=== PATIENT | female | born 1970 | race Caucasian/White ===

== ENCOUNTER 2016-12-23 08:55 | Day surgery (SDC) | payer OTHER ==
[~2016-12-23] VITALS: Ht 165.1 cm; Wt 74.8 kg
[~2016-12-23 08:55] MED LIST: ADVIL200 M1 PO; ALAVERT D-12 A1 EACH PO; ASPIRIN325 MG PO; ATIVAN1 MG PO; CITALOPRAM HBR20 MG PO; TECFIDERA240 MG PO; YAZ 28 TABLET1 EACH PO
--- NOTE | 2016-12-23 10:34 | NUR ---
12/23/16 1034 Maulik Jessica PT SLEEPING AND IS PASSING AIR FROM HER COLON.
== END 2016-12-23 10:55 | disposition home or self-care (01) ==
LOC: DS 08:55 → OPS 08:55 → DS 09:00 → OPS 09:00
PROVIDERS: Colon & Rectal Surgery
PROC: 0DJD8ZZ Inspection of Lower Intestinal Tract, Via Natural or Artificial Opening Endoscopic (ICD-10-PCS; principal; 2016-12-23 10:00)
DX: K64.4 Residual hemorrhoidal skin tags (principal); Z83.71 Family history of colonic polyps; E78.5 Hyperlipidemia, unspecified; F32.9 Major depressive disorder, single episode, unspecified; Z98.890 Other specified postprocedural states; J30.2 Other seasonal allergic rhinitis
CPT/HCPCS: 00810; J2250; J2704; J3010; J7120

== ENCOUNTER 2018-10-18 08:55 | Day surgery (SDC) | payer OTHER ==
[~2018-10-18] VITALS: Ht 165.1 cm; Wt 72.6 kg
[~2018-10-18 08:55] MED LIST changes: +GABAPENTIN300 MG PO; +VITAMIN D31000 UNI1 PO; +ZYRTEC10 MG PO
--- NOTE | 2018-10-18 14:49 | NUR ---
10/18/18 1449 Vania Devries 1445 PATIENT ARRIVES TO PACU AWAKE OFF/ON, DENIES PAIN. RESP EVEN AND UNLABORED, NC AT 2 LITERS.
[2018-10-18] MEDS ORDERED: IBUPROFEN600 MG PO (15:03)
[2018-10-18] MEDS ORDERED: TYLENOL325 MG PO (15:04)
[2018-10-18] MEDS ORDERED: OXYCODON-ACETA1 EAC2 PO (15:04)
--- NOTE | 2018-10-18 15:57 | NUR ---
PT IS BACK TO DS FROM PACU. HER IS AT THE BEDSIDE. PT IS PAINFUL AND REPORTS MUCH. SHE IS TOLERATING SIPS OF WATER AND SOME CRACKERS, REQUESTING JELLO. 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 CALL LIGHT WITHIN REACH. NO ADDITIONAL NEEDS AT THIS TIME. WILL CONTINUE TO MONITOR.
--- NOTE | 2018-10-18 17:07 | NUR ---
PT IS HELPED UP OOB WITH STANDBY ASSIST. SHE REPORTS FEELING SLIGHTLY DIZZY, BUT IS ABLE TO KEEP HER BALANCE AND IS NOT WOBBLING. SHE AMBULATES HERSELF WITH ASSISTANCE TO THE BATHROOM. SHE IS ABLE TO VOID 200ML'S OF URINE. SHE IS HELPED BACK TO HER ROOM. SHE IS EDUCATED THAT SHE HAS MET DC CRITERIA AT THIS TIME AND IF SHE WOULD LIKE TO GET DRESSED SHE COULD, SHE OPTED TO WAIT FOR HER TO GET BACK. PT IS INSTRUCTED TO HIT HER CALL LIGHT WHEN HER RETURNS.
--- NOTE | 2018-10-18 17:41 | NUR ---
VERBAL DC INSTRUCTIONS ARE GIVEN TO THE PATIENT AND HER . THEY BOTH VERBALIZE UNDERSTANDING. QUESTIONS ARE ASKED AND ANSWERED. PT IS TAKEN TO VEHICLE VIA WC.
--- NOTE | 2018-10-19 10:55 | OR ---
[facility] [address], [place] [address] Signed DATE OF OPERATION: 10/18/2018 SURGEON: Twila Pierre MD PREOPERATIVE DIAGNOSIS: Left upper outer quadrant infiltrating ductal breast carcinoma. POSTOPERATIVE DIAGNOSES: 1. Left upper outer quadrant infiltrating ductal breast carcinoma. 2. [place] lymph nodes x2, benign on frozen pathology. PROCEDURE: 1. Injection of methylene blue dye for sentinel lymph node biopsy. 2. Excision of deep left axillary sentinel lymph nodes x2. 3. Left partial mastectomy. 4. Oncoplastic closure of breast defect. ANESTHESIA: General endotracheal, Sonali Magaña CRNA. INDICATION: This 47-year-old white woman is a patient of Dr. Candida Rice, recently diagnosed on abnormal mammographies with image guided biopsy by Dr. Harshad Padgett to have infiltrating ductal breast carcinoma in the upper outer aspect of the left side. The patient has maintained a high level of breast cancer surveillance given a family history of her mother with breast cancer. Her biopsy was performed by Dr. Padgett by image guidance on October 06, 2018. Specific details include a low mitotic grade and low Ki-67 percentage and ER/NM receptors positive. HER-2/miah receptors are pending. The patient has rather large breasts. She is a candidate for breast conservation therapy, which she prefers. She understands the risks of bleeding, infection, cosmetic deformity, despite efforts to avoid it, need for radiation therapy and need for other indicated procedures including possible left axillary dissection if sentinel lymph node proved to be positive on frozen pathology. Understanding all of this, she wished to proceed with sentinel lymph node biopsy on the left and left partial mastectomy at site of breast cancer. Of note, image guidance to identify the breast tumor are unnecessary as the lesion is easily clinically palpable. FINDINGS: Good uptake to left medial upper axillary lymph nodes with radionuclide was noted. Electronically Signed By: TWILA PIERRE MD 10/19/18 1055 PATIENT NAME: ZOLTAN DUNBAR OPERATIVE REPORT DATE OF : 68 REPORT #: [id number] PHYSICIAN: TWILA PIERRE MD PCP: CANDIDA RICE MD REPORT IS CONFIDENTIAL AND NOT TO BE RELEASED WITHOUT AUTHORIZATION [facility] [address], [place] [address] Signed There was less uptake of the blue dye. However, there was some particular on the larger of the two lymph nodes. There were no remaining sentinel lymph nodes. Of note, based on radionuclide interrogation of the axilla. Two small normal lymph nodes coincidentally excised were sent for permanent pathology. As regards to the primary lesion itself, it was in the upper outer aspect of the left breast, it was easily identified and widely resected. The defect was rather significant. The excised specimen was at least the size of a softball somewhat elongated, but given her redundancy of breast parenchyma oncoplastic closure was able to be accomplished with mobilization of the breast pedicles and careful closure technique. Of note, both sentinel lymph nodes were negative for metastatic disease and completion of axillary dissection was not required. DESCRIPTION OF PROCEDURE: The patient was received from radiology suite having undergone sentinel lymph node identification with radionuclide technique. She was given a general endotracheal anesthetic and placed in a supine position with the left arm out. Review of her sentinel node imaging studies was undertaken and application of the C-Trak gamma probe to the axilla was undertaken showing good strong signal in the left medial upper axilla. The lesion itself was palpable in the upper outer aspect of the left breast. The breast was prepared with a spray Betadine solution and draped sterilely. Not mentioned previously there was injection of 1 mL of methylene blue dye with subepidermal space in the areolar margin on the left. Using the gamma probe as a guide, a transverse incision was made in the medial upper left axilla. Dissection was carried through the subcutaneous tissue with electrocautery. Blunt dissection was undertaken with use of Army-Carman retractors. A tonsil clamp and so forth using the probe as a guide. On characteristically, I did not see blue lymphatics, but the location of sentinel lymph nodes was far more medial than usual essentially subpectoral in the upper axilla. With meticulous care and fair amount of effort, a 1.5 cm sentinel lymph node was identified with a small amount of dye, but avid amount of uptake. This was excised. Clips were used to secure the lymphatic passages as well as blood vessels. This was sent as lymph node #1. With the additional dissection more medially, a very small node was identified, it too was marked and identified a sentinel lymph node #2. Both lymph nodes were later identified as negative for metastatic disease. Irrigation was undertaken into the axilla, showing no sign of ongoing bleeding. The wound was packed with gauze. While waiting for the frozen pathology regarding the lymph nodes, attention was turned towards the primary tumor. A curvilinear incision was made over the palpable lesion in the upper outer aspect of the left breast. Dissection was carried through the dermis using electrocautery. Flaps were elevated medially and laterally and wide resection of the palpable lesion was undertaken. It was somewhat amorphous and relatively large. I suspect greater than 2 cm and possibly three. Never the less maintenance of clinically Electronically Signed By: TWILA PIERRE MD 10/19/18 1055 PATIENT NAME: ZOLTAN DUNBAR BENJAMIN OPERATIVE REPORT DATE OF : 68 REPORT #: [id number] PHYSICIAN: TWILA PIERRE MD PCP: CANDIDA RICE MD REPORT IS CONFIDENTIAL AND NOT TO BE RELEASED WITHOUT AUTHORIZATION [facility] [address], [place] [address] Signed negative margins was undertaken with electrocautery. Wide and deep resection were undertaken. Due to the generous amount of breast present and liberal excision could be undertaken so as to provide a pathologically negative margin. Dissection was carried down to the pectoralis as it turns out. Prior to explantation of the specimen, the lesion was marked with a short stitch superior, long stitch lateral and a double stitch deep for margins. There appeared to be clinically negative margins. The specimen was passed for radiograph to affirm the lesion in question was excised and subsequently was affirmed to be completely excised and with what appeared to be a grossly negative margin radiographically. Irrigation of the large defect of the upper outer aspect of the breast was undertaken with sterile water. Small areas of bleeding were secured with electrocautery. The wound was then packed further. Attention was then turned towards the left axilla. By this point, frozen pathology confirmed no sign of metastatic disease of the axillary lymph nodes. The wound was closed in layers of interrupted 2-0 Vicryl in a running subcuticular 3-0 Vicryl for the skin. Reinspection of the defect in the upper outer aspect of the left breast was undertaken and it was clear that oncoplastic closure techniques would be beneficial for cosmetic benefit. On that basis, the medial breast pedicle was mobilized somewhat laterally and the lateral redundant tissue mobilized medially allowing for layered closure with interrupted 2-0 Vicryl covering the defect quite impressively. Deep dermal sutures were maintained in a small freeing of overlying skin that had a puckered effect, it was undertaken with electrocautery. Ultimately, the skin was closed with a running subcuticular 3-0 Vicryl, Steri-Strips were applied to both wounds as was a Mepilex silver sponge dressing and an OpSite. Blood loss was estimated about 25 mL in total. She was extubated without problem, and taken recovery room in good condition. MD SYLVIA Owens/NASRA /[id number] cc: MD Candida Barrera MD Copies: HARSHAD PADGETT MD Electronically Signed By: TWILA PIERRE MD 10/19/18 1055 PATIENT NAME: ZOLTAN DUNBAR OPERATIVE REPORT DATE OF : 68 REPORT #: [id number] PHYSICIAN: TWILA PIERRE MD PCP: CANDIDA RICE MD REPORT IS CONFIDENTIAL AND NOT TO BE RELEASED WITHOUT AUTHORIZATION [facility] [address] [place] [address] Signed CANDIDA RICE MD ~ Electronically Signed By: TWILA PIERRE MD 10/19/18 1055 PATIENT NAME: ZOLTAN DUNBAR BENJAMIN OPERATIVE REPORT DATE OF : 68 REPORT #: [id number] PHYSICIAN: TWILA PIERRE MD PCP: CANDIDA RICE MD REPORT IS CONFIDENTIAL AND NOT TO BE RELEASED WITHOUT AUTHORIZATION
== END 2018-10-18 17:35 | disposition home or self-care (01) ==
LOC: OPS 08:55 → DS 08:55 → US 09:00 → EDSTATUS 10:00 → OPS 10:00
PROVIDERS: Surgery
PROC: 0HBU0ZZ Excision of Left Breast, Open Approach (ICD-10-PCS; principal; 2018-10-18 11:30)
PROC: 07B60ZX Excision of Left Axillary Lymphatic, Open Approach, Diagnostic (ICD-10-PCS; 2018-10-18 11:30)
DX: C50.412 Malignant neoplasm of upper-outer quadrant of left female breast (principal); F32.9 Major depressive disorder, single episode, unspecified; G35 Multiple sclerosis; Z79.82 Long term (current) use of aspirin; Z79.899 Other long term (current) drug therapy
CPT/HCPCS: 00404; 76098; 76970; 78195; A9541; J0131; J0690; J1100; J1644; J1885; J2250; J2300; J2405; J2704; J3010; J3475; J7120; Q9968

== ENCOUNTER 2023-11-04 10:36 | Day surgery (SDC) | payer OTHER ==
[~2023-11-04 10:36] MED LIST changes: +AMITRIPTYLINE H10 MG PO; +ANASTROZOLE1 MG PO; +CALCIUM500 MG PO; +CEFAZOLIN SODIUM 2 GM/20 ML SYR IV SCH; +HYDROXYZINE HCL25 MG PO; +IBLOOD GLUCOSE TEST STRIP 1 EA TEST VI PRN; +IBUPROFEN600 MG PO; +LACTATED RINGER'S 1,000 ML IV SCH; +LIDOCAINE HCL 1% 5 ML SDV INJ ONE; +MELOXICAM15 MG PO; +MIDAZOLAM HCL 5 MG/5 ML VIAL IV PRN; +MONTELUKAST SOD10 MG PO; +OXYCODON-ACETA1 EAC2 PO; +PERCOCET 5-3251 EACH PO; +TYLENOL325 MG PO; +ZOFRAN8 MG PO; +fentaNYL citrate 100 MCG/2 ML VIAL IV PRN
[2023-11-04 10:51] VITALS: BP 152/94
--- NOTE | 2023-11-04 12:28 | NUR ---
PT AND ARE GIVEN AN UPDATE, LETTING THEM KNOW THAT IT WILL BE AT LEAST ANOTHER HOUR AND HALF BEFORE SHE GOES BACK FOR HER SCOPE. SHE IS GIVEN WARM BLANKETS AND ENCOURAGED TO USE HER CALL LIGHT SHOULD SHE NEED ANYTHING. IS ASKED IF HE WOULD LIKE OR NEED ANYTHING, HE DECLINES AT THIS TIME AND ENCOURAGED TO LET THIS RN KNOW IF THAT CHANGES.
[2023-11-04] MEDS ORDERED: MIDAZOLAM HCL 5 MG/5 ML VIAL ONE (14:07)
[2023-11-04] MEDS ORDERED: fentaNYL citrate 100 MCG/2 ML VIAL ONE (14:07)
--- NOTE | 2023-11-04 15:01 | NUR ---
11/04/23 1501 Adrien Muniz 1455: PT ARRIVED TO PACU VIA STRETCHER. PT ARRIVED ON RA. PT AROUSABLE TO TOUCH AND VOICE. PTS ABDOMEN SOFT AND NON DISTENED AT THIS TIME. 1500: PT REMAINS ON RA WITH SAT 91% AT THIS TIME. PT AWAKE ON AND OFF.
[2023-11-04 15:28] VITALS: BP 115/81
--- NOTE | 2023-11-06 10:52 | OR ---
[facility] [address] [place], [place] [address] Signed DATE OF OPERATION: 11/04/2023 SURGEON: Twila Pierre MD PREOPERATIVE DIAGNOSES: 1. Family history of colon cancer (father). 2. Uncertain history regarding prior polyps. POSTOPERATIVE DIAGNOSES: 1. Sigmoid and right-sided diverticulosis. 2. Small polyps x3. PROCEDURE: Total colonoscopy to cecum with cold morcellation polypectomy x3. ANESTHESIA: Intravenous sedation fentanyl 150 mcg, Versed 9 mg. INDICATION: This 53-year-old white woman is a patient of Dr. Candida Rice. She is well known to me from the past have undergone breast cancer treatment in 2019. She underwent screening colonoscopy 5-10 years ago she thinks by Dr. Christiano Lyn. She is uncertain, but believes she may have had at least one polyp. She has no current symptoms of bleeding, diarrhea or constipation. She does have family history of colon cancer in her father. She understands the risk of colonoscopy including but not limited to bleeding, infection, and perforation and wished to proceed. FINDINGS: The prep was good. Complete colonoscopy was undertaken of the cecum. She had numerous diverticula of the sigmoid and right colon. There were three very small polyps which were excised with cold morcellation technique. She had no other findings of concern. PROCEDURE IN DETAIL: The patient was brought to the endoscopy suite, placed in lateral decubitus position, given intravenous sedation to the point of slurred speech and nystagmus. Digital rectal examination was normal. An Olympus video colonoscope was passed in the rectum and manipulated throughout the colon noting diverticula of the sigmoid. In the left colon was a small polyp, was excised with cold morcellation technique. The scope was advanced further and ultimately Electronically Signed By: TWILA PIERRE MD 11/06/23 1052 PATIENT NAME: ZOLTAN DUNBAR OPERATIVE REPORT DATE OF : 68 REPORT #: [id number] PHYSICIAN: TWILA PIERRE MD PCP: CANDIDA RICE MD REPORT IS CONFIDENTIAL AND NOT TO BE RELEASED WITHOUT AUTHORIZATION [facility] [address] [place], [place] [address] Signed to the cecum. The ileocecal valve and appendiceal orifice appeared normal. Irrigation was undertaken. The scope was then carefully withdrawn. Examination showed diverticular changes of the transverse colon to a degree but not in the splenic flexure area. The scope was withdrawn. A small polyp was noted in the proximal descending colon and the previous biopsy site also noted. Further withdrawal showed a small polyp of the rectosigmoid which was excised with cold morcellation technique. Retroflexed view was normal. Scope was removed. The patient was taken to the recovery room in good condition. CONCLUSION DIAGNOSIS: Small polyps x3 and diverticulosis. PLAN: Recommend repeat colonoscopy in 5 years, sooner if symptoms should develop. Recommend also high-fiber diet. She will return to the ongoing care of Dr. Rice. MD SYLVIA Owens/NASRA /[id number] cc: Candida Rice MD Copies: CANDIDA RICE MD ~ Electronically Signed By: TWILA PIERRE MD 11/06/23 1052 PATIENT NAME: ZOLTAN DUNBAR BENJAMIN OPERATIVE REPORT DATE OF : 68 REPORT #: [id number] PHYSICIAN: TWILA PIERRE MD PCP: CANDIDA RICE MD REPORT IS CONFIDENTIAL AND NOT TO BE RELEASED WITHOUT AUTHORIZATION
--- NOTE | 2023-11-09 17:08 | PATH ---
[facility] [address] [place] [facility] [place] [address] Signed SPECIMEN(S): A DESCENDING COLON POLYP SPECIMEN(S): B DESCENDING COLON POLYP #2 SPECIMEN(S): C SIGMOID/RECTUM POLYP SPECIMEN SOURCE: A. DESCENDING COLON POLYP B. DESCENDING COLON POLYP #2 C. SIGMOID/RECTUM POLYP CLINICAL HISTORY: Family history of colon cancer, diverticulosis FINAL PATHOLOGIC DIAGNOSIS: A. Descending colon polyp: - Hyperplastic polyp. B. Descending colon polyp #2: - Tubular adenoma. - Negative for high-grade dysplasia or malignancy. C. Sigmoid/rectum polyp: - Polypoid fragment of benign colonic mucosa. - No colitis or neoplasm identified. [facility] MICROSCOPIC EXAMINATION: Histologic sections of all submitted blocks are examined by light microscopy. These findings, together with the gross examination, support the pathologic diagnosis. GROSS DESCRIPTION: A. The specimen, labeled and designated "Rubens, descending/left colon polyp," is received in formalin and consists of one cuevas soft tissue fragment, 0.3 cm. Entirely submitted in (A1). B. The specimen, labeled and designated "Rubens, descending/left colon polyp #2," is received in formalin and consists of two cuevas soft tissue fragments, ranging from 0.2-0.3 cm. Entirely submitted in (B1). C. The specimen, labeled and designated "Rubens, sigmoid/rectum polyp," is received in formalin and consists of one cuevas soft tissue fragment, 0.4 cm. Entirely submitted in (C1). VB (under the direct supervision of a pathologist) The Gross Description was prepared using a voice recognition system. The report PATIENT NAME: ZOLTAN DUNBAR PATHOLOGY DATE OF : 68 REPORT #: [id number] PHYSICIAN: ILSA CRAWFORD PCP: CANDIDA BAKER MD REPORT IS CONFIDENTIAL AND NOT TO BE RELEASED WITHOUT AUTHORIZATION [facility] [address] [place], [place] [address] Signed was reviewed for accuracy; however, sound-alike word errors, addition and/or deletions may occur. If there is any question about this report, please contact Client Services. ADDITIONAL NOTES: Immunohistochemical and/or in situ hybridization studies if performed in this case included appropriate positive controls that reacted as expected. This test was developed and its performance characteristics determined by [facility]. It has not been cleared or approved by the U.S. Food and Drug Administration. The FDA has determined that such clearance or approval is not necessary. This test is used for clinical purposes. It should not be regarded as investigational or for research. [facility] is certified under the Clinical Laboratory Improvement Amendments of 1988 (CLIA) as qualified to perform high complexity clinical laboratory testing. PERFORMING LABORATORY: Technical component was performed by [facility], [address] [place] [id number] (CLIA# [id number]). Professional interpretation was performed by [facility], [address] [place] [id number] (CLIA#: [id number]). Diagnostician: Parker Palacio MD Pathologist Electronically Signed 11/09/2023 Copies: ~ PATIENT NAME: ZOLTAN DUNBAR PATHOLOGY DATE OF : 68 REPORT #: [id number] PHYSICIAN: IL[facility] PATHOLOGY PCP: CANDIDA BAKER MD REPORT IS CONFIDENTIAL AND NOT TO BE RELEASED WITHOUT AUTHORIZATION
== END 2023-11-04 16:20 | disposition home or self-care (01) ==
LOC: OPS 10:36
PROVIDERS: ATTEND Surgery
PROC: 0DBE8ZX Excision of Large Intestine, Via Natural or Artificial Opening Endoscopic, Diagnostic (ICD-10-PCS; principal; 2023-11-04 12:00)
DX: Z12.11 Encounter for screening for malignant neoplasm of colon (principal); D12.4 Benign neoplasm of descending colon; K63.5 Polyp of colon; K57.30 Diverticulosis of large intestine without perforation or abscess without bleeding; Z80.0 Family history of malignant neoplasm of digestive organs; Z85.3 Personal history of malignant neoplasm of breast; G35 Multiple sclerosis; K21.00 Gastro-esophageal reflux disease with esophagitis, without bleeding; Z96.652 Presence of left artificial knee joint; Z79.899 Other long term (current) drug therapy
CPT/HCPCS: 99153; G0500; J0690; J2250; J3010; J7121